=== PATIENT | male | born 1955 | race Caucasian/White ===

== ENCOUNTER 2023-02-21 07:29 | Day surgery (SDC) | payer MEDICARE, OTHER, SELFPAY ==
[2023-02-18 13:12] VITALS: BMI 28.8
[2023-02-21 08:05] VITALS: BP 136/71; PULSE 54; RESP 18; TEMP 36.1; O2SAT 97
[2023-02-21] MEDS: sodium chloride 0.9% 1,000 ML 30 ML IV (08:05)
--- NOTE | 2023-02-21 08:35 | ANES.PREANE2 ---
Pre-Anesthetic Assessment Height/Weight: Height 1.73 m Weight 86.183 kg Temp Pulse Resp BP Pulse Ox O2 Del Method 97.0 F L 54 L 18 136/71 97 Room Air 02/21/23 08:05 02/21/23 08:05 02/21/23 08:05 02/21/23 08:05 02/21/23 08:05 02/21/23 08:05 Preop Diagnosis: screening Operation Date: 02/21/23 09:00 Proposed Procedures p Colonoscopy 95847,Z12.11(Not Applicable) - Link Singh, DO Was Beta Ananya taken within 24 hours: N/A Was Clonidine taken within 24 hours: N/A Last intake: Intake Last Liquid Date 02/20/23 Last Liquid Time 22:00 Last Solid Date 02/19/23 Last Solid Time 18:00 Social No alcohol and No tobacco Exam alert, oriented x 3, clear to auscultation bilaterally and regular rate & rhythm Airway Submandibular: within normal limits Cervical ROM: within normal limits Mallampati: Class II History/ROS No significant history except as noted Pulmonary episode of pneumonia with hospitalization one year ago CV/HEM None reported Hepatic None reported GI None reported Metabolic Hyperlipidemia [facility] [place] None reported Neuropsych None reported Anesthetic Plan ASA status: 2 Anesthesia: Anesthesia Evaluation and MAC Risk of > 500 ml blood loss (7ml/kg in children): Yes, adequate IV access and fluids planned Medications/Allergies Home Medications Medication Instructions Recorded Confirmed Last Taken Type albuterol sulfate 90 mcg/actuation 2 inh inhalation Q4H PRN shortness 01/04/22 02/21/23 Unknown Rx aerosol inhaler of breath or wheezing #8.5 grams lovastatin 20 mg tablet 20 mg PO DAILY 01/04/22 02/21/23 02/19/23 History omeprazole 20 mg capsule,delayed 40 mg PO DAILY 01/04/22 02/21/23 02/20/23 History release trazodone-dietary supp no.8 50 mg 1 pkg PO QPM 01/04/22 02/21/23 02/19/23 History oral combo pack meloxicam 15 mg tablet 15 mg PO DAILY 02/18/23 02/21/23 02/19/23 History Allergies Allergy/AdvReac Type Severity Reaction Status Date / Time No Known Allergies Allergy Unverified 02/21/23 07:55 Current Medications Generic Name Dose Route Start Last Admin Trade Name Maunelq PRN Reason Stop Dose Admin Sodium Chloride 1,000 mls @ 30 mls/hr 02/21/23 08:00 02/21/23 08:05 Sodium Chloride 0.9% IV 02/22/23 07:59 30 mls/hr .Q24H KAMRON Administration PFSH Anesthesia Social History Smoking and tobacco status: never smoked Data Anesthesia Cardiac Studies: No Data to Display
--- NOTE | 2023-02-21 09:03 | PM.HP ---
Providers/Chief Complaint Primary Care Provider: Analisa Guerra NP Chief Complaint: Z12.11 History of Present Illness Ignacio Cuadra is a 67 year old male here for a screening colonoscopy. He had one 12 years ago. Denies any family history of colon cancer. Medications/Allergies Home Medications Medication Instructions Recorded Confirmed Last Taken Type albuterol sulfate 90 mcg/actuation 2 inh inhalation Q4H PRN shortness 01/04/22 02/21/23 Unknown Rx aerosol inhaler of breath or wheezing #8.5 grams lovastatin 20 mg tablet 20 mg PO DAILY 01/04/22 02/21/23 02/19/23 History omeprazole 20 mg capsule,delayed 40 mg PO DAILY 01/04/22 02/21/23 02/20/23 History release trazodone-dietary supp no.8 50 mg 1 pkg PO QPM 01/04/22 02/21/23 02/19/23 History oral combo pack meloxicam 15 mg tablet 15 mg PO DAILY 02/18/23 02/21/23 02/19/23 History Allergies Allergy/AdvReac Type Severity Reaction Status Date / Time No Known Allergies Allergy Unverified 02/21/23 07:55 PFSH Acute PFSH: Social History Smoking and tobacco status: never smoked Vitals/I&O/Wt Last Vital Signs Temp 97.0 F L 02/21/23 08:05 Pulse 54 L 02/21/23 08:05 Resp 18 02/21/23 08:05 BP 136/71 02/21/23 08:05 Pulse Ox 97 02/21/23 08:05 O2 Del Method Room Air 02/21/23 08:05 A&P Assessment and plan (1) Colon cancer screening: Plan Screening colonoscopy The risks and benefits of the procedure, including bleeding, infection, intestinal perforation requiring surgery, missed lesion were explained to the patient. The patient is understanding of the risks and wishes to proceed. Attestations Medical Necessity Statement*: Home Coding Level of Care Code Acute Code for Chg Fwd Diagnoses Colon cancer screening Z12.11
[2023-02-21 09:26] VITALS: BP 111/69; PULSE 63; RESP 14; TEMP 36.1; O2SAT 93
[2023-02-21 09:34] VITALS: BP 112/76; PULSE 64; RESP 18; O2SAT 94
--- NOTE | 2023-02-21 12:38 | ANE.PACU2 ---
Inpatient post-anesthesia follow up: Airway intact: Yes Vital signs: Temperature 97.0 F Pulse Rate 64 Respiratory Rate 18 Blood Pressure 112/76 Pulse Oximetry 94 Oxygen Delivery Me thod Room Air Oxygen Flow Rate Fraction of Inspir ed Oxygen Hydration adequate: Yes Nausea and vomiting: No Pain level: 2 Mental status: Baseline
== END 2023-02-21 10:02 | disposition home or self-care (01) ==
PROVIDERS: PCP Nurse Practitioner Family; Visit Provider Surgery
PROC: 0DJD8ZZ Inspection of Lower Intestinal Tract, Via Natural or Artificial Opening Endoscopic (ICD-10-PCS; CPT 45378; principal; 2023-02-21 09:00)
DX: Z12.11 Encounter for screening for malignant neoplasm of colon (principal); E78.5 Hyperlipidemia, unspecified
CPT/HCPCS: G0121; J2704; J7030

== ENCOUNTER 2023-07-28 09:56 | Outpatient (CLI) | payer MEDICARE, OTHER, SELFPAY ==
--- NOTE | 2023-07-28 10:17 | XRR_ITS ---
PROCEDURE INFORMATION: Exam: XR Lumbosacral Spine Exam date and time: 07/28/2023 10:22 AM Age: 67 years old Clinical indication: Low back pain TECHNIQUE: Imaging protocol: Radiologic exam of the lumbosacral spine. Views: 4 or 5 views. COMPARISON: CR XR hip BI m 5V wo/w pel* [id number] 02/02/2018 1:10 PM FINDINGS: Bones/joints: No acute fracture. Normal alignment. Moderate to severe multilevel intervertebral disc space narrowing, osteophytosis, and subchondral sclerosis along the lumbar spine. Lower lumbar spine facet arthrosis. Bilateral sacroiliac joint and pubic symphysis degenerative changes. Soft tissues: Unremarkable. XR/XR lumbar spine min 4V [id number] IMPRESSION: 1. No acute fracture. 2. Moderate to severe degenerative changes along the lumbar spine, sacroiliac joints and pubic symphysis.
== END 2023-07-28 09:57 | disposition home or self-care (01) ==
PROVIDERS: PCP Nurse Practitioner Family; Visit Provider Nurse Practitioner Family
DX: M47.896 Other spondylosis, lumbar region (principal); M47.898 Other spondylosis, sacral and sacrococcygeal region; M19.09 Primary osteoarthritis, other specified site; M54.50 Low back pain, unspecified
CPT/HCPCS: 72110

== ENCOUNTER 2024-07-26 11:40 | Outpatient (CLI) | payer MEDICARE, OTHER, SELFPAY ==
--- NOTE | 2024-07-26 11:44 | XR_ITS ---
WS: [id number] Right shoulder, 2 views, 07/26/2024 Clinical Data: INJURY OF R SHOULDER UPPER ARM Comparison: None. Findings: No fractures or dislocations are seen. There is irregularity of the greater tuberosity and irregulari ty of the articulation between the humeral head and the glenoid rim. The AC joint shows mild osteoart hritis. The adjacent right clavicle, right scapula and ribs are normal. The soft tissues are unremark able. 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
== END 2024-07-26 11:41 | disposition home or self-care (01) ==
PROVIDERS: PCP Nurse Practitioner Family; Visit Provider Nurse Practitioner Family
DX: S49.91XA Unspecified injury of right shoulder and upper arm, initial encounter (principal); X58.XXXA Exposure to other specified factors, initial encounter
CPT/HCPCS: 73030